=== PATIENT | female | born 1935 | race Caucasian/White ===

== ENCOUNTER 2017-04-24 14:19 | Inpatient (IN) | payer MEDICARE, BC ==
[~2017-04-24] VITALS: Ht 157.5 cm; Wt 68.4 kg
[2017-04-24 14:26] VITALS: BP 145/86; PULSE 66; RESP 18; TEMP 97.6; O2SAT 100
[2017-04-24] MEDS ORDERED: ATOR20TA15 PO (15:02)
[2017-04-24] MEDS ORDERED: BENA25CA4 PO (15:02)
[2017-04-24] MEDS ORDERED: SODIUM CHLOR 0.9% 1000 ML INJ 1,000 ML IV SCH (15:15)
--- NOTE | 2017-04-24 15:16 | PD ---
HPI Chief Complaint: Hip Injury Time Seen by Provider: 14:53 Travel History International Travel<30 days: No Contact w/Intl Traveler<30days: No Traveled to known affect area: No History of Present Illness HPI 81-year-old female complains of right hip pain. Patient states that she fell this afternoon. Patient denies loss of consciousness. Patient denies any headache or neck pain. Patient denies any chest pain or shortness of breath. Patient denies abdominal pain. Patient denies any focal weakness and numbness of the extremity. Patient denies any back pain. Patient states the pain is sharp pain localized to right hip. Patient denies any pain radiation. On a scale of 1-10 the pain is a 9. Patient has history of hyperlipidemia. PFSH Past Medical History Hx Anticoagulant Therapy: No Cancer: Yes (R BREAST ) High Cholesterol: Yes Diminished Hearing: No Immunizations Current: No Tetanus Vaccination: Unknown Influenza Vaccination: Yes Past Surgical History Tonsillectomy: Yes Other Surgery: Yes (PARTIAL R MASTECTOMY ) Social History Alcohol Use: Yes (OCC) Tobacco Use: No Substance Use: Yes Allergies-Medications (Allergen,Severity, Reaction): Coded Allergies: Penicillins (Verified Allergy, Severe, ANAPHYLACTIC SHOCK , 04/24/17) Reported Meds & Prescriptions Reported Meds & Active Scripts Active Reported Benadryl Allergy (Diphenhydramine HCl) 25 Mg Cap 2 Tab PO DAILY Atorvastatin (Atorvastatin Calcium) 20 Mg Tab 20 Mg PO DAILY Review of Systems General / Constitutional: No: Fever Eyes: No: Visual changes HENT: No: Headaches Cardiovascular: No: Chest Pain or Discomfort Respiratory: No: Shortness of Breath Gastrointestinal: No: Abdominal Pain Genitourinary: No: Dysuria Musculoskeletal: Positive: Pain Skin: No Rash Neurologic: No: Weakness Psychiatric: No: Depression Endocrine: No: Polydipsia Hematologic/Lymphatic: No: Easy Bruising Physical Exam Narrative GENERAL: Well-nourished, well-developed patient. SKIN: Focused skin assessment warm/dry. HEAD: Normocephalic. EYES: No scleral icterus. No injection or drainage. NECK: Supple, trachea midline. No JVD or lymphadenopathy. CARDIOVASCULAR: Regular rate and rhythm without murmurs, gallops, or rubs. RESPIRATORY: Breath sounds equal bilaterally. No accessory muscle use. GASTROINTESTINAL: Abdomen soft, non-tender, nondistended. MUSCULOSKELETAL: No cyanosis, or edema. BACK: Nontender without obvious deformity. No CVA tenderness. Patient has moderate to severe tenderness on palpation anterior lateral aspect of the right hip joint. Unable to move the right hip joint. Sensorimotor function distally intact. Good DP pulse. Data Data Last Documented VS Vital Signs Date Time Temp Pulse Resp B/P (MAP) Pulse Ox O2 Delivery O2 Flow Rate FiO2 04/24/17 18:50 84 18 121/75 (90) 100 04/24/17 16:30 Room Air 04/24/17 14:26 97.6 Orders Orders Electrocardiogram (04/24/17 15:09) Complete Blood Count With Diff (04/24/17 15:09) Comprehensive Metabolic Panel (04/24/17 15:09) Prothrombin Time / Inr (Pt) (04/24/17 15:09) Act Partial Throm Time (Ptt) (04/24/17 15:09) Urinalysis - C+S If Indicated (04/24/17 15:09) Chest, Single Ap (04/24/17 15:09) Iv Access Insert/Monitor (04/24/17 15:09) Ecg Monitoring (04/24/17 15:09) Oximetry (04/24/17 15:09) Urinary Catheter Insert/Apply (04/24/17 15:09) Type And Screen (04/24/17 15:09) Sodium Chlor 0.9% 1000 Ml Inj (Ns 1000 M (04/24/17 15:15) Hip, Uni(Ap&Lat) W Ap Pelvis (04/24/17 16:45) Morphine Inj (Morphine Inj) (04/24/17 17:30) Ondansetron Inj (Zofran Inj) (04/24/17 17:30) Vascular Access Team Consult/P PRN (04/24/17 18:11) Vascular Poc Ultrasound (04/24/17 ) Consult Orthopedic (04/24/17 ) (Hub Use Only)Inp Phy Cons/Ref (04/24/17 ) Diet Regular Basic (04/24/17 Dinner) Admit Order (Ed Use Only) (04/24/17 19:07) Labs Laboratory Tests Test 04/24/17 15:00 04/24/17 15:37 White Blood Count 10.4 TH/MM3 Red Blood Count 4.57 MIL/MM3 Hemoglobin 15.2 GM/DL Hematocrit 45.3 % Mean Corpuscular Volume 99.1 FL Mean Corpuscular Hemoglobin 33.3 PG Mean Corpuscular Hemoglobin Concent 33.6 % Red Cell Distribution Width 13.1 % Platelet Count 193 TH/MM3 Mean Platelet Volume 9.2 FL Neutrophils (%) (Auto) 59.6 % Lymphocytes (%) (Auto) 32.2 % Monocytes (%) (Auto) 6.2 % Eosinophils (%) (Auto) 1.7 % Basophils (%) (Auto) 0.3 % Neutrophils # (Auto) 6.2 TH/MM3 Lymphocytes # (Auto) 3.3 TH/MM3 Monocytes # (Auto) 0.6 TH/MM3 Eosinophils # (Auto) 0.2 TH/MM3 Basophils # (Auto) 0.0 TH/MM3 CBC Comment DIFF FINAL Differential Comment Prothrombin Time 10.0 SEC Prothromb Time International Ratio 1.0 RATIO Activated Partial Thromboplast Time 21.9 SEC Urine Color YELLOW Urine Turbidity CLEAR Urine pH 6.5 Urine Specific [place] 1.020 Urine Protein TRACE mg/dL Urine Glucose (UA) NEG mg/dL Urine Ketones TRACE mg/dL Urine Occult Blood NEG Urine Nitrite NEG Urine Bilirubin NEG Urine Urobilinogen LESS THAN 2.0 MG/DL Urine Leukocyte Esterase NEG Urine RBC 2 /hpf Urine WBC 3 /hpf Urine Squamous Epithelial Cells <1 /hpf Urine Bacteria RARE /hpf Urine Mucus FEW /lpf Microscopic Urinalysis Comment CULT NOT INDICATED MDM Medical Decision Making Medical Screen Exam Complete: Yes Emergency Medical Condition: Yes Interpretation(s) Last Impressions Hip and Pelvis X-Ray 04/24/17 1645 Signed Impressions: Service Date/Time: Monday, April 24, 2017 17:08 - CONCLUSION: A comminuted intertrochanteric fracture. Wagner Schmitt MD Chest X-Ray 04/24/17 1509 Signed Impressions: Service Date/Time: Monday, April 24, 2017 15:15 - CONCLUSION: No acute disease. Neil Maddox MD 1808 p.m. CBC within normal limit. UA is negative. Differential Diagnosis Differential diagnosis including fracture, dislocation. Narrative Course 81-year-old female with right hip injury. Normal saline solution 100 cc an hour. Morphine 2 mg IV. Zofran 4 MG IV. Spoke with orthopedist marketing production specialist, . Advised medical admission and surgery in a.m. Diagnosis Primary Impression: Fracture of right femur Qualified Codes: S72.141A - Displaced intertrochanteric fracture of right femur, initial encounter for closed fracture Admitting Information Admitting Physician Requests: Admit Nate Vincent MD Apr 24, 2017 15:16
--- NOTE | 2017-04-24 15:41 | RADRPT ---
EXAM DATE/TIME: 04/24/2017 15:15 [facility] COMPARISON: No previous studies available for comparison. INDICATIONS : Fell. MEDICAL HISTORY : Carcinoma, breast. SURGICAL HISTORY : partial right breast removal 12 years ago. ENCOUNTER: Initial ACUITY: 1 day PAIN SCORE: 0/10 LOCATION: Bilateral chest FINDINGS: A single view of the chest demonstrates the lungs to be symmetrically aerated without evidence of mas s, infiltrate or effusion. The cardiomediastinal contours are unremarkable. Osseous structures are intact. Right axillary dissection. CONCLUSION: No acute disease. Neil Maddox MD on April 24, 2017 at 15:37 Board Certified Radiologist. This report was verified electronically.
[2017-04-24 16:30] VITALS: BP 111/82; PULSE 84; RESP 16; O2SAT 98
[2017-04-24 16:30] LABS: AUTOMATED NEUTROPHIL # 6.2 TH/MM3 (1.8-7.7); BASOPHIL % 0.3 % (0.0-2.0); EOSINOPHIL # 0.2 TH/MM3 (0-0.4); EOSINOPHIL % 1.7 % (0.0-4.0); HEMATOCRIT 45.3 % (35.0-46.0); HEMOGLOBIN 15.2 GM/DL (11.6-15.3); LYMPH % 32.2 % (9.0-44.0); LYMPHOCYTE # 3.3 TH/MM3 (1.0-4.8); MEAN CELL VOLUME 99.1 FL (80.0-100.0); MEAN CORPUSCULAR HEMOGLOBIN 33.3 PG (27.0-34.0); MEAN CORPUSCULAR HGB CONC 33.6 % (32.0-36.0); MEAN PLATELET VOLUME 9.2 FL (7.0-11.0); MONO % 6.2 % (0.0-8.0); MONOCYTE # 0.6 TH/MM3 (0-0.9); NEUT % 59.6 % (16.0-70.0); PLATELET COUNT 193 TH/MM3 (150-450); RED BLOOD COUNT 4.57 MIL/MM3 (4.00-5.30); RED CELL DISTRIBUTION WIDTH 13.1 % (11.6-17.2); WHITE BLOOD COUNT 10.4 TH/MM3 (4.0-11.0)
[2017-04-24 16:38] LABS: BACTERIA, URINE RARE /hpf; BILIRUBIN, URINE NEG (NEG); BLOOD, URINE NEG (NEG); GLUCOSE,URINE NEG (NEG); KETONE, URINE TRACE mg/dL (NEG); MUCUS URINE FEW /lpf (OCC); NITRITE,URINE NEG (NEG); PH, URINE 6.5 (5.0-8.5); SQUAMOUS EPITHELIAL CELL URINE <1 /hpf (0-5); URINE COLOR YELLOW (YELLW/STRAW); URINE LEUKOCYTE ESTERASE NEG (NEG)
--- NOTE | 2017-04-24 17:19 | EKG ---
Date Performed: 04/24/2017 Time Performed: 15:30:37 PTAGE: 81 years EKG: Sinus rhythm NORMAL ECG NO PREVIOUS TRACING DOCTOR: Teddy Ocasio Interpretating Date/Time 04/24/2017 17:17:51
[2017-04-24] MEDS ORDERED: MORPHINE SULFATE 2 MG/ML INJ IV PUSH ONE (17:30)
[2017-04-24] MEDS ORDERED: ONDANSETRON HCL 4 MG/2 ML VIAL IV PUSH ONE (17:30)
--- NOTE | 2017-04-24 17:38 | RADRPT ---
EXAM DATE/TIME: 04/24/2017 17:08 [facility] COMPARISON: No previous studies available for comparison. INDICATIONS : Right hip pain post fall today MEDICAL HISTORY : None. SURGICAL HISTORY : None. ENCOUNTER: Initial ACUITY: 1 day PAIN SCORE: 10/10 LOCATION: Right entire hip FINDINGS: AP and crosstable lateral views of the right hip were obtained and demonstrate a mildly comminuted in tertrochanteric fracture. There is approximately 1.4 cm of distraction and mild medial angulation of the proximal femoral fracture fragment. The acetabulum is intact. There is overlying soft tissue swel ling. CONCLUSION: A comminuted intertrochanteric fracture. Wagner Schmitt MD on April 24, 2017 at 17:34 Board Certified Radiologist. This report was verified electronically.
[2017-04-24 18:50] VITALS: BP 121/75; PULSE 84; RESP 18; O2SAT 100
[2017-04-24 19:28] VITALS: BP 152/89; PULSE 89; RESP 20; O2SAT 100
[2017-04-24] MEDS ORDERED: NALOXONE HCL 0.4 MG/ML AMP IV PUSH PRN (19:30)
[2017-04-24] MEDS ORDERED: SODIUM CHLORIDE 0.9% FLUSH 10 ML FLUSH IV FLUSH PRN (19:30)
[2017-04-24] MEDS ORDERED: MAGNESIUM HYDROXIDE SUSP 30 ML CUP PO PRN (19:30)
[2017-04-24] MEDS ORDERED: MORPHINE SULFATE 2 MG/ML INJ IV PRN (19:30)
[2017-04-24] MEDS ORDERED: LACTULOSE SYRUP 20 GM/30 ML CUP PO PRN (19:30)
[2017-04-24] MEDS ORDERED: MORPHINE SULFATE 4 MG/ML INJ IV PUSH PRN (19:30)
[2017-04-24] MEDS ORDERED: SENNOSIDES 8.6 MG TAB PO PRN (19:30)
[2017-04-24] MEDS ORDERED: BISACODYL 10 MG SUPP RECTAL PRN (19:30)
[2017-04-24 20:00] LABS: ALT (GPT) 21 U/L (10-53)
[2017-04-24 20:02] LABS: ALBUMIN 3.3 GM/DL (3.4-5.0); ALKALINE PHOSPHATASE 125 U/L (45-117); AST (GOT) 32 U/L (15-37); BLOOD UREA NITROGEN 14 MG/DL (7-18); CALCIUM 8.8 MG/DL (8.5-10.1); CHLORIDE 108 MEQ/L (98-107); CREATININE 0.85 MG/DL (0.50-1.00); GLOMERULAR FILTRATION RATE 64 ML/MIN (>89); GLUCOSE,RANDOM 110 MG/DL (74-106); SODIUM (NA) 138 MEQ/L (136-145); TOTAL BILIRUBIN ADULT 0.8 MG/DL (0.2-1.0); TOTAL PROTEIN 6.9 GM/DL (6.4-8.2)
--- NOTE | 2017-04-24 20:11 | HHI.HP ---
[facility] Service [facility] Primary Care Physician Unknown Admission Diagnosis fracture right femur Diagnoses: Travel History International Travel<30 Days: No Contact w/Intl Traveler <30 Da: No Traveled to Known Affected Are: No History of Present Illness 81-year-old female with a past medical history significant for osteoarthritis and hyperlipidemia presents to the emergency department for evaluation of right- sided hip pain. The patient reports she was getting out of a car when her leg gave out and she fell directly onto her right hip on the concrete. She states her pain is currently 10/10. Hip x-ray significant for right intertrochanteric fracture. Vital signs: Temperature 97.6, pulse 66, respirations 18, BP 145/86, pulse ox 100% on room air Review of Systems Except as stated in HPI: all other systems reviewed are Neg Right lower extremity pain Past Family Social History Past Medical History Osteoarthritis Osteopenia Hyperlipidemia History of breast cancer Past Surgical History Lumpectomy with lymph node dissection Reported Medications Reported Meds & Active Scripts Active Reported Benadryl Allergy (Diphenhydramine HCl) 25 Mg Cap 2 Tab PO DAILY Atorvastatin (Atorvastatin Calcium) 20 Mg Tab 20 Mg PO DAILY Allergies: Coded Allergies: Penicillins (Verified Allergy, Severe, ANAPHYLACTIC SHOCK , 04/24/17) Family History Negative for CAD/DM Social History Occasional alcohol. Denies tobacco, illicit drugs Physical Exam Vital Signs Vital Signs Date Time Temp Pulse Resp B/P (MAP) Pulse Ox O2 Delivery O2 Flow Rate FiO2 04/24/17 19:28 89 20 152/89 (110) 100 Room Air 04/24/17 18:50 84 18 121/75 (90) 100 04/24/17 16:30 84 16 111/82 (92) 98 Room Air 04/24/17 14:30 Room Air 04/24/17 14:26 97.6 66 18 145/86 (105) 100 Physical Exam GENERAL: female lying in bed SKIN: No rashes, ecchymoses or lesions. Cool and dry. HEAD: Atraumatic. Normocephalic. No temporal or scalp tenderness. EYES: Pupils equal round and reactive. Extraocular motions intact. No scleral icterus. No injection or drainage. ENT: Nose without bleeding, purulent drainage or septal hematoma. Throat without erythema, tonsillar hypertrophy or exudate. Uvula midline. Airway patent. NECK: Trachea midline. No JVD or lymphadenopathy. Supple, nontender, no meningeal signs. CARDIOVASCULAR: Regular rate and rhythm without murmurs, gallops, or rubs. RESPIRATORY: Clear to auscultation. Breath sounds equal bilaterally. No wheezes , rales, or rhonchi. GASTROINTESTINAL: Abdomen soft, non-tender, nondistended. No hepato-splenomegaly , or palpable masses. No guarding. MUSCULOSKELETAL: Extremities without clubbing, cyanosis, or edema. Right lower extremity neurovascularly intact. NEUROLOGICAL: Awake and alert. Cranial nerves II through XII intact. Motor and sensory grossly within normal limits. Normal speech. Laboratory Laboratory Tests Test 04/24/17 15:00 04/24/17 15:37 04/24/17 19:20 White Blood Count 10.4 Red Blood Count 4.57 Hemoglobin 15.2 Hematocrit 45.3 Mean Corpuscular Volume 99.1 Mean Corpuscular Hemoglobin 33.3 Mean Corpuscular Hemoglobin Concent 33.6 Red Cell Distribution Width 13.1 Platelet Count 193 Mean Platelet Volume 9.2 Neutrophils (%) (Auto) 59.6 Lymphocytes (%) (Auto) 32.2 Monocytes (%) (Auto) 6.2 Eosinophils (%) (Auto) 1.7 Basophils (%) (Auto) 0.3 Neutrophils # (Auto) 6.2 Lymphocytes # (Auto) 3.3 Monocytes # (Auto) 0.6 Eosinophils # (Auto) 0.2 Basophils # (Auto) 0.0 CBC Comment DIFF FINAL Differential Comment Prothrombin Time 10.0 Prothromb Time International Ratio 1.0 Activated Partial Thromboplast Time 21.9 Urine Color YELLOW Urine Turbidity CLEAR Urine pH 6.5 Urine Specific [place] 1.020 Urine Protein TRACE Urine Glucose (UA) NEG Urine Ketones TRACE Urine Occult Blood NEG Urine Nitrite NEG Urine Bilirubin NEG Urine Urobilinogen LESS THAN 2.0 Urine Leukocyte Esterase NEG Urine RBC 2 Urine WBC 3 Urine Squamous Epithelial Cells <1 Urine Bacteria RARE Urine Mucus FEW Microscopic Urinalysis Comment CULT NOT INDICATED Alanine Aminotransferase (ALT/SGPT) 21 Result Diagram: 04/24/17 1500 Caprini VTE Risk Assessment Caprini VTE Risk Assessment: Mod/High Risk (score >= 2) Caprini Risk Assessment Model Point Value = 1 Point Value = 2 Point Value = 3 Point Value = 5 Age 41-60 Minor surgery BMI > 25 kg/m2 Swollen legs Varicose veins or History of unexplained or recurrent spontaneous Oral contraceptives or hormone replacement Sepsis (< 1 month) Serious lung disease, including pneumonia (< 1 month) Abnormal pulmonary function Acute myocardial infarction Congestive heart failure (< 1 month) History of inflammatory bowel disease Medical patient at bed rest Age 61-74 Arthroscopic surgery Major open surgery (> 45 min) Laparoscopic surgery (> 45 min) Malignancy Confined to bed (> 72 hours) Immobilizing plaster cast Central venous access Age >= 75 History of VTE Family history of VTE Factor V Leiden Prothrombin [id number] Lupus anticoagulant Anticardiolipin antibodies Elevated serum homocysteine Heparin-induced thrombocytopenia Other congenital or acquired thrombophilia Stroke (< 1 month) Elective arthroplasty Hip, pelvis, or leg fracture Acute spinal cord injury (< 1 month) Prophylaxis Regimen Total Risk Factor Score Risk Level Prophylaxis Regimen 0-1 Low Early ambulation 2 Moderate Order ONE of the following: *Sequential Compression Device (SCD) *Heparin 5000 units SQ BID 3-4 Higher Order ONE of the following medications: *Heparin 5000 units SQ TID *Enoxaparin/Lovenox 40 mg SQ daily (WT < 150 kg, CrCl > 30 mL/min) *Enoxaparin/Lovenox 30 mg SQ daily (WT < 150 kg, CrCl > 10-29 mL/min) *Enoxaparin/Lovenox 30 mg SQ BID (WT < 150 kg, CrCl > 30 mL/min) AND/OR *Sequential Compression Device (SCD) 5 or more Highest Order ONE of the following medications: *Heparin 5000 units SQ TID (Preferred with Epidurals) *Enoxaparin/Lovenox 40 mg SQ daily (WT < 150 kg, CrCl > 30 mL/min) *Enoxaparin/Lovenox 30 mg SQ daily (WT < 150 kg, CrCl > 10-29 mL/min) *Enoxaparin/Lovenox 30 mg SQ BID (WT < 150 kg, CrCl > 30 mL/min) AND *Sequential Compression Device (SCD) Assessment and Plan Assessment and Plan Assessment/plan: 1. Right hip fracture Hip x-ray significant for comminuted intertrochanteric fracture Ortho surgery consulted, appreciate recommendations Morphine for pain Nothing by mouth IV fluids 2. Hyperlipidemia Continue home statin FEN NPO NS at 100 cc/hr Electrolytes: monitor and replete prn Holding pharmacologic anticoagulation in anticipation of operative intervention for Physician Certification 2 Midnight Certification Type: Admission for Inpatient Services Order for Inpatient Services The services are ordered in accordance with Medicare regulations or non- Medicare payer requirements, as applicable. In the case of services not specified as inpatient-only, they are appropriately provided as inpatient services in accordance with the 2-midnight benchmark. Estimated LOS (days): 2 2 days is the estimated time the patient will need to remain in the hospital, assuming treatment plan goals are met and no additional complications. Post-Hospital Plan: Not yet determined Melissa Copeland MD Apr 24, 2017 20:11
[2017-04-24 20:59] VITALS: BP 125/74; PULSE 62; RESP 18; TEMP 97.5; O2SAT 97
[2017-04-24] MEDS ORDERED: SODIUM CHLORID 0.9% 500 ML IV PRN (21:45)
[2017-04-24] MEDS ORDERED: POVIDONE IODINE 5% (ANTISEPSIS KIT) 4 APPLICATIONS EACH NARE PRN (21:45)
[2017-04-24] MEDS ORDERED: CHLORHEXIDINE GLUCONATE 2 % 1 PACK (2 CLOTHS) TOPICAL PRN (21:45)
[2017-04-24] MEDS ORDERED: LACTATED RINGER'S 1000 ML IV PRN (21:45)
[2017-04-24] MEDS ORDERED: HYDROmorphone HCL PF 1 MG/ML VIAL IV PUSH ONE (22:15)
[2017-04-24] MEDS ORDERED: HYDROmorphone HCL PF 2 MG/ML VIAL IV PUSH ONE (22:30)
[2017-04-24] MEDS: SODIUM CHLORIDE 0.9% FLUSH 10 ML FLUSH IV FLUSH SCH (22:52)
[2017-04-24] MEDS: ONDANSETRON HCL 4 MG/2 ML VIAL IVP PRN (23:04)
[2017-04-24 23:59] VITALS: BP 155/66; PULSE 100; RESP 18; TEMP 96.9; O2SAT 94
[2017-04-25 04:20] VITALS: BP 120/62; PULSE 93; RESP 18; TEMP 96.7; O2SAT 94
[2017-04-25] MEDS: SODIUM CHLORIDE 0.9% FLUSH 10 ML FLUSH IV FLUSH SCH ×3 (07:12→20:21)
[2017-04-25] MEDS: ATORVASTATIN 20 MG TAB PO SCH (07:12)
[2017-04-25 07:16] LABS: BICARBONATE 20.1 MEQ/L (21.0-32.0); CALCIUM 8.2 MG/DL (8.5-10.1); CREATININE 0.76 MG/DL (0.50-1.00)
[2017-04-25 08:00] VITALS: BP 132/60; PULSE 102; RESP 17; TEMP 97.2; O2SAT 96
--- NOTE | 2017-04-25 08:30 | PD.CONS ---
HPI Service Orthopedic Surgeons Consult Requested By Primary Care Physician Unknown Admission Diagnosis fracture right femur Diagnoses: Chief Complaint: right intertrochanteric femur fracture History of Present Illness Patient is an 81-year-old female who tripped and fell off a curb onto her right hip. Patient had immediate onset of right hip pain. Patient denies any head trauma or loss of consciousness. She denies any other extremity injury. Review of Systems Constitutional: DENIES: Fever Endocrine: DENIES: Polyuria Eyes: DENIES: Blurred vision Ears, nose, mouth, throat: DENIES: Throat pain Respiratory: DENIES: Cough Cardiovascular: DENIES: Chest pain Gastrointestinal: DENIES: Abdominal pain Genitourinary: DENIES: Urinary incontinence Musculoskeletal: COMPLAINS OF: Joint pain, Joint Swelling Integumentary: DENIES: Rash Hematologic/lymphatic: DENIES: Bruising Immunologic/allergic: DENIES: Eczema Neurologic: DENIES: Abnormal gait Psychiatric: DENIES: Anxiety Past Family Social History Past Medical History Osteoarthritis Osteopenia Hyperlipidemia History of breast cancer Past Surgical History Lumpectomy with lymph node dissection Allergies: Coded Allergies: Penicillins (Verified Allergy, Severe, ANAPHYLACTIC SHOCK , 04/24/17) Active Ordered Medications Current Medications Medications (Trade) Dose Ordered Sig/Margarette Route Start Time Stop Time Status Last Admin (NS Flush) 2 ml UNSCH PRN IV FLUSH 04/24/17 19:30 (NS Flush) 2 ml BID IV FLUSH 04/24/17 21:00 04/24/17 22:52 (Tylenol) 650 mg Q4H PRN PO 04/24/17 19:30 (Zofran Inj) 4 mg Q6H PRN IVP 04/24/17 19:30 04/24/17 23:04 (Narcan Inj) 0.4 mg UNSCH PRN IV PUSH 04/24/17 19:30 (Milk Of Magnesia Liq) 30 ml Q12H PRN PO 04/24/17 19:30 (Senokot) 17.2 mg Q12H PRN PO 04/24/17 19:30 (Dulcolax Supp) 10 mg DAILY PRN RECTAL 04/24/17 19:30 (Lactulose Liq) 30 ml DAILY PRN PO 04/24/17 19:30 (Morphine Inj) 2 mg Q3H PRN IV 04/24/17 19:30 (Morphine Inj) 4 mg Q3H PRN IV PUSH 04/24/17 19:30 04/24/17 20:18 (Lipitor) 20 mg DAILY PO 04/25/17 09:00 Lactated Ringer's 1,000 ml @ 30 mls/hr Q24H PRN IV 04/24/17 21:45 04/27/17 21:44 04/25/17 04:56 Sodium Chloride 500 ml @ 30 mls/hr [id number] PRN IV 04/24/17 21:45 04/27/17 21:44 (Betadine 5% Antisepsis Kit) 1 applic PRODUCTION LINE ASSEMBLER PRN EACH NARE 04/24/17 21:45 04/27/17 21:44 (Chlorhexidine 2% Cloth) 3 pack PRODUCTION LINE ASSEMBLER PRN TOPICAL 04/24/17 21:45 04/27/17 21:44 Reported Meds & Active Scripts Active Reported Benadryl Allergy (Diphenhydramine HCl) 25 Mg Cap 2 Tab PO DAILY Atorvastatin (Atorvastatin Calcium) 20 Mg Tab 20 Mg PO DAILY Family History Negative for CAD/DM Social History Occasional alcohol. Denies tobacco, illicit drugs Physical Exam Vital Signs Vital Signs Date Time Temp Pulse Resp B/P (MAP) Pulse Ox O2 Delivery O2 Flow Rate FiO2 04/25/17 08:00 97.2 102 17 132/60 (84) 96 04/25/17 04:20 96.7 93 18 120/62 (81) 94 04/24/17 23:59 96.9 100 18 155/66 (95) 94 04/24/17 20:59 97.5 62 18 125/74 (91) 97 04/24/17 20:30 18 04/24/17 20:26 04/24/17 19:28 89 20 152/89 (110) 100 Room Air 04/24/17 18:50 84 18 121/75 (90) 100 04/24/17 16:30 84 16 111/82 (92) 98 Room Air 04/24/17 14:30 Room Air 04/24/17 14:26 97.6 66 18 145/86 (105) 100 Physical Exam Awake, alert, no acute distress Pupils equal Moist mucous membranes No JVD Nonlabored respirations Normocephalic Regular rate Soft nontender abdomen Right lower extremity: positive logroll with mild edema about the hip. Unable to assess range of motion due to pain at the hip. Patient is neurovascular intact distally positive EHL, FHL, tibia, gastrocs. Sensation intact. Dorsalis pedis pulse palpable. Bilateral upper extremities and left lower extremity: no tenderness palpation or visible deformities. Full active range of motion and strength throughout. Sensation intact. Neurovascularly intact distally. Palpable dorsalis pedis and radial pulses. No rash Normal affect Laboratory Laboratory Tests Test 04/24/17 15:00 04/24/17 15:37 04/24/17 19:20 04/25/17 05:50 White Blood Count 10.4 Red Blood Count 4.57 Hemoglobin 15.2 Hematocrit 45.3 Mean Corpuscular Volume 99.1 Mean Corpuscular Hemoglobin 33.3 Mean Corpuscular Hemoglobin Concent 33.6 Red Cell Distribution Width 13.1 Platelet Count 193 Mean Platelet Volume 9.2 Neutrophils (%) (Auto) 59.6 Lymphocytes (%) (Auto) 32.2 Monocytes (%) (Auto) 6.2 Eosinophils (%) (Auto) 1.7 Basophils (%) (Auto) 0.3 Neutrophils # (Auto) 6.2 Lymphocytes # (Auto) 3.3 Monocytes # (Auto) 0.6 Eosinophils # (Auto) 0.2 Basophils # (Auto) 0.0 CBC Comment DIFF FINAL Differential Comment Prothrombin Time 10.0 Prothromb Time International Ratio 1.0 Activated Partial Thromboplast Time 21.9 Urine Color YELLOW Urine Turbidity CLEAR Urine pH 6.5 Urine Specific [place] 1.020 Urine Protein TRACE Urine Glucose (UA) NEG Urine Ketones TRACE Urine Occult Blood NEG Urine Nitrite NEG Urine Bilirubin NEG Urine Urobilinogen LESS THAN 2.0 Urine Leukocyte Esterase NEG Urine RBC 2 Urine WBC 3 Urine Squamous Epithelial Cells <1 Urine Bacteria RARE Urine Mucus FEW Microscopic Urinalysis Comment CULT NOT INDICATED Blood Urea Nitrogen 14 15 Creatinine 0.85 0.76 Random Glucose 110 139 Total Protein 6.9 Albumin 3.3 Calcium Level 8.8 8.2 Alkaline Phosphatase 125 Aspartate Amino Transf (AST/SGOT) 32 Alanine Aminotransferase (ALT/SGPT) 21 Total Bilirubin 0.8 Sodium Level 138 137 Potassium Level 4.5 4.1 Chloride Level 108 108 Carbon Dioxide Level 23.0 20.1 Anion Gap 7 9 Estimat Glomerular Filtration Rate 64 73 Result Diagram: 04/24/17 1500 04/25/17 0550 Imaging Last 24 hours Impressions Hip and Pelvis X-Ray 04/24/17 1645 Signed Impressions: Service Date/Time: Monday, April 24, 2017 17:08 - CONCLUSION: A comminuted intertrochanteric fracture. Wagner Schmitt MD Chest X-Ray 04/24/17 1509 Signed Impressions: Service Date/Time: Monday, April 24, 2017 15:15 - CONCLUSION: No acute disease. Neil Maddox MD Assessment & Plan Assessment and Plan Patient is an 81-year-old female with a right peritrochanteric femur fracture Options management were discussed with the patient. Given she has a hip fracture, I recommended operative intervention in the form of intramedullary nail of her right femur. Risks, benefits, alternatives were discussed with the patient. Risks including but not limited to: Infection, nonunion or malunion, hardware failure or malposition, neurovascular injury, hip pain or arthritis, possible need further surgery, and other unforeseen complications. At this time the patient is consented to procedure. Patient is nothing by mouth at this time for surgery later this afternoon. Paz Crane MD Apr 25, 2017 08:30
[2017-04-25] MEDS ORDERED: GENTAMICIN SULFATE 80 MG/2 ML VIAL ONE (11:39)
[2017-04-25] MEDS ORDERED: BUPIVACAINE/EPINEPHRINE 0.25% PF 10 ML VIAL ONE (11:42)
[2017-04-25] MEDS ORDERED: BUPIVACAINE/EPINEPHRINE 0.25% 50 ML VIAL ONE (11:43)
[2017-04-25 11:56] VITALS: BP 103/49; PULSE 99; RESP 17; TEMP 98; O2SAT 93
[2017-04-25] MEDS ORDERED: PROPOFOL 200 MG/20 ML AMP IV ONE (12:00)
[2017-04-25] MEDS ORDERED: ROCURONIUM INJ 50 MG/5 ML SYRINGE IV PUSH ONE (12:00)
[2017-04-25] MEDS ORDERED: ceFAZolin INJ 1,000 MG VIAL IV ONE ×2 (12:00→13:34)
[2017-04-25] MEDS ORDERED: LIDOCAINE HCL 1% PF 5 ML SYRINGE OTHER ONE (12:00)
[2017-04-25] MEDS ORDERED: ONDANSETRON HCL 4 MG/2 ML VIAL IV ONE (12:00)
[2017-04-25] MEDS ORDERED: PHENYLEPH/NS 1000 MCG/10 ML SYR IV ONE (12:00)
[2017-04-25] MEDS ORDERED: DEXAMETHASONE SOD PHOS 4 MG/ML VIAL IV ONE (12:00)
[2017-04-25] MEDS ORDERED: ePHEDrine/NS 25 MG/5 ML SYRINGE IV ONE (12:00)
--- NOTE | 2017-04-25 12:01 | HHI.PR ---
Subjective Remarks Pain is controlled. Patient will be having surgery later today. No acute concerns to prohibit surgery. Patient is medically clear for surgery. Objective Vital Signs Date Time Temp Pulse Resp B/P (MAP) Pulse Ox O2 Delivery O2 Flow Rate FiO2 04/25/17 11:56 98.0 99 17 103/49 (67) 93 04/25/17 08:00 97.2 102 17 132/60 (84) 96 04/25/17 04:20 96.7 93 18 120/62 (81) 94 04/24/17 23:59 96.9 100 18 155/66 (95) 94 04/24/17 20:59 97.5 62 18 125/74 (91) 97 04/24/17 20:30 18 04/24/17 20:26 04/24/17 19:28 89 20 152/89 (110) 100 Room Air 04/24/17 18:50 84 18 121/75 (90) 100 04/24/17 16:30 84 16 111/82 (92) 98 Room Air 04/24/17 14:30 Room Air 04/24/17 14:26 97.6 66 18 145/86 (105) 100 I/O 04/24/17 04/24/17 04/24/17 04/25/17 04/25/17 04/25/17 07:00 15:00 23:00 07:00 15:00 23:00 Intake Total 1000 ml 720 ml Output Total 500 ml Balance 1000 ml 220 ml Intake Oral 720 ml IV Total 1000 ml Output Urine Total 500 ml # Bowel Movements 0 Result Diagram: 04/24/17 1500 04/25/17 0550 Objective Remarks GENERAL: NAD, A&Ox3 HEAD: Normocephalic. NECK: Supple, trachea midline. No lymphadenopathy. EYES: No scleral icterus. No injection or drainage. CARDIOVASCULAR: Regular rate and rhythm without murmurs, gallops, or rubs. RESPIRATORY: Breath sounds equal bilaterally. No accessory muscle use. GASTROINTESTINAL: Abdomen soft, non-tender, nondistended. MUSCULOSKELETAL: No cyanosis, or edema. Pain with any attempted range of motion of right lower extremity. SKIN: Warm and dry. NEURO: No focal neurological deficitis. Medications and IVs Administered Medications Medications (Trade) Dose Ordered Sig/Margarette Route PRN Reason Start Time Stop Time Status Last Admin Dose Admin Sodium Chloride (NS Flush) 2 ml BID IV FLUSH 04/24/17 21:00 04/24/17 22:52 Ondansetron HCl (Zofran Inj) 4 mg Q6H PRN IVP NAUSEA OR VOMITING 04/24/17 19:30 04/24/17 23:04 Morphine Sulfate (Morphine Inj) 2 mg Q3H PRN IV pain 1-5 04/24/17 19:30 04/25/17 09:16 Morphine Sulfate (Morphine Inj) 4 mg Q3H PRN IV PUSH pain 6-10 04/24/17 19:30 04/24/17 20:18 Lactated Ringer's 1,000 ml @ 30 mls/hr Q24H PRN IV SEE LABEL COMMENTS 04/24/17 21:45 04/27/17 21:44 04/25/17 04:56 A/P Problem List: (1) Fracture of right femur ICD Code: S72.91XA - Unspecified fracture of right femur, initial encounter for closed fracture Status: Acute Assessment and Plan 81-year-old female admitted secondary to fracture of the right femur. Plan for surgical intervention later today. Patient medically clear for surgery. Right femur fracture Patient medically clear for surgery Continue as needed pain treatments Orthopedic surgeon following Anticipate physical therapy postop May need [facility] facility at time of discharge Hyperlipidemia Continue home statin DVT prophylaxis Anticoagulation on hold preop Problem Qualifiers (1) Fracture of right femur: Qualified Codes: S72.141A - Displaced intertrochanteric fracture of right femur , initial encounter for closed fracture Albert Cochran MD Apr 25, 2017 12:01
[2017-04-25 12:11] LABS: AUTOMATED NEUTROPHIL # 7.1 TH/MM3 (1.8-7.7); BASOPHIL % 0.5 % (0.0-2.0); EOSINOPHIL % 0.4 % (0.0-4.0); HEMATOCRIT 37.6 % (35.0-46.0); HEMOGLOBIN 12.8 GM/DL (11.6-15.3); LYMPH % 20.8 % (9.0-44.0); LYMPHOCYTE # 2.1 TH/MM3 (1.0-4.8); MEAN CELL VOLUME 98.9 FL (80.0-100.0); MEAN CORPUSCULAR HEMOGLOBIN 33.7 PG (27.0-34.0); MEAN CORPUSCULAR HGB CONC 34.1 % (32.0-36.0); MEAN PLATELET VOLUME 8.7 FL (7.0-11.0); MONO % 7.7 % (0.0-8.0); MONOCYTE # 0.8 TH/MM3 (0-0.9); NEUT % 70.6 % (16.0-70.0); PLATELET COUNT 154 TH/MM3 (150-450); RED BLOOD COUNT 3.81 MIL/MM3 (4.00-5.30); RED CELL DISTRIBUTION WIDTH 13.4 % (11.6-17.2); WHITE BLOOD COUNT 10.1 TH/MM3 (4.0-11.0)
[2017-04-25] MEDS ORDERED: FAMOTIDINE 20 MG/2 ML VIAL ONE (12:13)
[2017-04-25] MEDS ORDERED: MIDAZOLAM HCL 2 MG/2 ML VIAL ONE (12:13)
[2017-04-25] MEDS ORDERED: VANCOMYCIN HCL 1000 MG VIAL ONE (13:11)
--- NOTE | 2017-04-25 14:58 | PD.OP ---
cc: Paz Crane MD Operative Report Preoperative Diagnosis: (1) Fracture of right femur Postoperative Diagnosis: Right unstable peritrochanteric femur fracture Procedure: Intramedullary nail right femur Anesthesia: Gen. Surgeon: Paz Crane Wine Maker(s): None Operation and Findings: EBL: 150 cc Complications: None Specimens: None Indications for procedure: Patient is an 81-year-old female who presented after a trip and fall with acute onset right hip pain and found to have a right peritrochanteric femur fracture. Options of management were discussed with the patient. Surgical intervention was recommended in the form of intramedullary nail of her right femur. After discussion of risks, benefits and alternatives, patient consented the procedure. Description of procedure: Patient was brought back to the operating room and general anesthesia then ensued. Patient was then positioned onto an operating room fracture table with all bony prominences well-padded. Patient was prepped and draped in standard sterile fashion. Preoperative antibiotics were given within 1 hour of incision. A timeout was performed to identify the correct patient, side, site and procedure to be performed. The fracture was then reduced with the use of the fracture table through traction and rotation. An approximate 1-1/2-2 inch incision was made just proximal to and posterior to the greater trochanter. A guidewire was then placed into the tip of the greater trochanter and advanced to the lesser trochanteric region on both AP and lateral films. An opening reamer was then used to provide injury into the femoral canal and advanced to the lesser trochanter region. Given the concern that this was a reverse obliquity intertrochanteric fracture, an intermediate length nail was going to be used and therefore a ball-tipped guidewire was placed into the femoral canal. A 12 mm reamer was then used and passed beyond the level of the femoral isthmus. This was then removed and the Synthes TFN nail was then placed into the femur and advanced to appropriate position in both the AP and lateral films. The sleeves for the locking blade were then inserted through the jig and a lateral based incision was made to allow the sleeves to be placed down to the lateral aspect of the proximal femur. When this was in appropriate position on both AP and lateral, a guidewire for the blade was then inserted from lateral to medial direction into the femoral neck and into the center center position in the femoral head on AP and lateral radiographs. This was subsequently measured, drilled and then advanced and placed. This was found to be in appropriate position in a center center position in the femoral head on both AP and lateral radiographs. The locking screw was then tightened down onto the blade and then loosened one half turn to allow for controlled collapse. The guidewire was then removed. Traction was removed from the femur and the fracture was found to be in good position on both AP and lateral radiographs. The drill sleeves were then placed for the distal locking screw and lateral incision again made in the sleeves advanced down to the lateral cortex. This was then drilled, measured and a locking screw placed. The insertion handle and jig was then removed. Final radiographs demonstrated fracture was well aligned on both AP and lateral radiographs and hardware and acceptable position. The incisions were thoroughly irrigated and closed with interrupted Vicryl sutures and kelly on the skin. Sterile dressings were then placed. Patient was awoken from general anesthesia without complication. Disposition: Patient will be partial weightbearing 50% to the right lower extremity. Plan to mobilize her starting on postop day 1. Lovenox for DVT prophylaxis while in house and plan for xarelto upon discharge. Paz Crane MD Apr 25, 2017 14:58
[2017-04-25] MEDS ORDERED: SODIUM CHLORIDE 0.9% FLUSH 10 ML FLUSH IV FLUSH PRN (15:00)
[2017-04-25] MEDS ORDERED: Post-op Orders (for Pharmacy) XX ONE (15:00)
[2017-04-25] MEDS ORDERED: *morphine SULFATE 10 MG/ML PERIprocedure ONLY ONE (15:07)
[2017-04-25] MEDS ORDERED: *ONDANSETRON 4 MG VIAL PERIprocedural Use ONLY ONE (15:07)
--- NOTE | 2017-04-25 15:21 | RADRPT ---
EXAM DATE/TIME: 04/25/2017 14:28 [facility] COMPARISON: No previous studies available for comparison. INDICATIONS : Im troch nail right hip. MEDICAL HISTORY : Intertrochanteric fracture right hip. SURGICAL HISTORY : None. ENCOUNTER: Subsequent ACUITY: 2 days PAIN SCORE: Non-responsive. LOCATION: Right Hip. CONCLUSION: Fluoroscopic images during placement of nail/clari in the right femur. Neil Maddox MD on April 25, 2017 at 15:18 Board Certified Radiologist. This report was verified electronically.
[2017-04-25] MEDS ORDERED: DO NOT ADM ANY ANTICOAGULANT DRUGS PRN (15:45)
[2017-04-25 16:00] VITALS: BP 122/60; PULSE 99; RESP 17; TEMP 96.5; O2SAT 95
[2017-04-25] MEDS: ONDANSETRON HCL 4 MG/2 ML VIAL IVP PRN (16:27)
[2017-04-25 21:00] VITALS: BP 93/42; PULSE 76; RESP 18; TEMP 96.7; O2SAT 97
[2017-04-25 23:04] VITALS: BP 94/43; PULSE 104; RESP 18; TEMP 97.3; O2SAT 92
[2017-04-26] MEDS: ENOXAPARIN SODIUM 40 MG/0.4 ML SYRINGE SQ SCH (03:43)
[2017-04-26 05:50] VITALS: BP 95/61; PULSE 101; RESP 18; TEMP 98.1; O2SAT 94
[2017-04-26 05:54] LABS: AUTOMATED NEUTROPHIL # 11.3 TH/MM3 (1.8-7.7); BASOPHIL % 0.1 % (0.0-2.0); HEMATOCRIT 31.6 % (35.0-46.0); HEMOGLOBIN 10.7 GM/DL (11.6-15.3); LYMPH % 8.4 % (9.0-44.0); LYMPHOCYTE # 1.1 TH/MM3 (1.0-4.8); MEAN CELL VOLUME 99.4 FL (80.0-100.0); MEAN CORPUSCULAR HEMOGLOBIN 33.7 PG (27.0-34.0); MEAN CORPUSCULAR HGB CONC 33.9 % (32.0-36.0); MEAN PLATELET VOLUME 8.8 FL (7.0-11.0); MONO % 5.7 % (0.0-8.0); MONOCYTE # 0.8 TH/MM3 (0-0.9); NEUT % 85.8 % (16.0-70.0); PLATELET COUNT 141 TH/MM3 (150-450); RED BLOOD COUNT 3.18 MIL/MM3 (4.00-5.30); RED CELL DISTRIBUTION WIDTH 13.5 % (11.6-17.2); WHITE BLOOD COUNT 13.2 TH/MM3 (4.0-11.0)
[2017-04-26 06:16] LABS: ALBUMIN 2.8 GM/DL (3.4-5.0); ALT (GPT) 18 U/L (10-53); AST (GOT) 33 U/L (15-37); BICARBONATE 22.3 MEQ/L (21.0-32.0); BLOOD UREA NITROGEN 9 MG/DL (7-18); CALCIUM 7.9 MG/DL (8.5-10.1); CHLORIDE 107 MEQ/L (98-107); CREATININE 0.77 MG/DL (0.50-1.00); GLOMERULAR FILTRATION RATE 72 ML/MIN (>89); GLUCOSE,RANDOM 140 MG/DL (74-106); SODIUM (NA) 140 MEQ/L (136-145)
[2017-04-26 06:18] LABS: ALKALINE PHOSPHATASE 108 U/L (45-117); TOTAL BILIRUBIN ADULT 0.4 MG/DL (0.2-1.0); TOTAL PROTEIN 6.6 GM/DL (6.4-8.2)
[2017-04-26 08:00] VITALS: BP 120/55; PULSE 107; RESP 18; TEMP 97.1; O2SAT 92
[2017-04-26] MEDS: SODIUM CHLORIDE 0.9% FLUSH 10 ML FLUSH IV FLUSH SCH ×3 (08:28→20:59)
[2017-04-26] MEDS: ATORVASTATIN 20 MG TAB PO SCH (08:28)
[2017-04-26 12:00] VITALS: BP 128/70; PULSE 104; RESP 18; TEMP 97.4; O2SAT 93
--- NOTE | 2017-04-26 12:07 | PD.ORT.PN ---
Subjective Subjective Remarks Patient states she is doing very well although very confused. Denies pain. Denies shortness of breath. Objective Vitals Vital Signs Date Time Temp Pulse Resp B/P (MAP) Pulse Ox O2 Delivery O2 Flow Rate FiO2 04/26/17 05:50 98.1 101 18 95/61 (72) 94 04/25/17 23:04 97.3 104 18 94/43 (60) 92 04/25/17 21:00 96.7 76 18 93/42 (59) 97 04/25/17 16:00 96.5 99 17 122/60 (80) 95 04/25/17 15:42 98.4 98 19 117/55 (75) 99 Nasal Cannula 2 04/25/17 15:30 99 20 120/56 (77) 99 Nasal Cannula 2 04/25/17 15:15 100 17 113/56 (75) 97 Nasal Cannula 2 04/25/17 15:00 101 15 117/54 (75) 98 Nasal Cannula 2 04/25/17 14:53 98.6 110 21 135/67 (89) 92 Nasal Cannula 2 I/O 04/25/17 04/25/17 04/25/17 04/26/17 04/26/17 04/26/17 07:00 15:00 23:00 07:00 15:00 23:00 Intake Total 720 ml 1300 ml 360 ml 600 ml Output Total 500 ml 500 ml 600 ml 1000 ml Balance 220 ml 800 ml -240 ml -400 ml Intake Oral 720 ml 0 ml 360 ml 600 ml IV Total 1300 ml Output Urine Total 500 ml 500 ml 600 ml 1000 ml # Bowel Movements 0 0 0 0 Result Diagram: 04/26/1743904/26/17439 Objective Remarks Awake, alert, no acute distress. Confused at baseline. Right lower extremity: Dressings in place although patient continues to try to remove these. No significant drainage. Negative Homans. Neurovascularly intact distally. Brisk cap refill. Assessment & Plan Assessment and Plan Patient is an 81-year-old female, POD#1 s/p right intramedullary nail for peritrochanteric femur fracture 1. Partial weightbearing 50% right lower extremity. 2. PT for mobilization 3. Lovenox for DVT prophylaxis. Plan for switch to xarelto upon discharge. 4. Dressing changes as needed. 5. Orthopedically stable for discharge once confusion improves. Paz Crane MD Apr 26, 2017 12:07
[2017-04-26] MEDS ORDERED: NORC5TAB PO (12:09)
[2017-04-26] MEDS ORDERED: XARE10TA PO (12:13)
--- NOTE | 2017-04-26 14:25 | HHI.PR ---
Subjective Remarks Pain is controlled postop. No nausea or vomiting. Patient does have confusion which is likely an anesthetic effect combined with an underlying dementia. Objective Vital Signs Date Time Temp Pulse Resp B/P (MAP) Pulse Ox O2 Delivery O2 Flow Rate FiO2 04/26/17 08:00 97.1 107 18 120/55 (76) 92 04/26/17 05:50 98.1 101 18 95/61 (72) 94 04/25/17 23:04 97.3 104 18 94/43 (60) 92 04/25/17 21:00 96.7 76 18 93/42 (59) 97 04/25/17 16:00 96.5 99 17 122/60 (80) 95 04/25/17 15:42 98.4 98 19 117/55 (75) 99 Nasal Cannula 2 04/25/17 15:30 99 20 120/56 (77) 99 Nasal Cannula 2 04/25/17 15:15 100 17 113/56 (75) 97 Nasal Cannula 2 04/25/17 15:00 101 15 117/54 (75) 98 Nasal Cannula 2 04/25/17 14:53 98.6 110 21 135/67 (89) 92 Nasal Cannula 2 I/O 04/25/17 04/25/17 04/25/17 04/26/17 04/26/17 04/26/17 07:00 15:00 23:00 07:00 15:00 23:00 Intake Total 720 ml 1300 ml 360 ml 600 ml Output Total 500 ml 500 ml 600 ml 1000 ml Balance 220 ml 800 ml -240 ml -400 ml Intake Oral 720 ml 0 ml 360 ml 600 ml IV Total 1300 ml Output Urine Total 500 ml 500 ml 600 ml 1000 ml # Bowel Movements 0 0 0 0 Result Diagram: 04/26/170 04/26/170 Objective Remarks GENERAL: NAD, A&Ox3 HEAD: Normocephalic. NECK: Supple, trachea midline. No lymphadenopathy. EYES: No scleral icterus. No injection or drainage. CARDIOVASCULAR: Regular rate and rhythm without murmurs, gallops, or rubs. RESPIRATORY: Breath sounds equal bilaterally. No accessory muscle use. GASTROINTESTINAL: Abdomen soft, non-tender, nondistended. MUSCULOSKELETAL: No cyanosis, or edema. Pain with any attempted range of motion of right lower extremity. SKIN: Warm and dry. NEURO: No focal neurological deficitis. A/P Problem List: (1) Fracture of right femur ICD Code: S72.91XA - Unspecified fracture of right femur, initial encounter for closed fracture Status: Acute Assessment and Plan 81-year-old female admitted secondary to fracture of the right femur. Confusion is present postop. Pain controlled and no nausea or vomiting. Hemoglobin dropped from 12.8 to 10.7, no signs of active bleeding. Right femur fracture Patient medically clear for surgery Continue as needed pain treatments Orthopedic surgeon following Anticipate physical therapy postop May need correction facility at time of discharge Hyperlipidemia Continue home statin DVT prophylaxis Anticoagulation on hold preop Problem Qualifiers (1) Fracture of right femur: Qualified Codes: S72.141A - Displaced intertrochanteric fracture of right femur , initial encounter for closed fracture Albert Cochran MD Apr 26, 2017 14:25
[2017-04-26 16:00] VITALS: BP 142/80; PULSE 101; RESP 17; TEMP 98; O2SAT 94
[2017-04-26] MEDS: traMADol HCL 50 MG TAB PO PRN (16:51)
[2017-04-26 20:00] VITALS: BP 99/51; PULSE 101; RESP 18; TEMP 97.8; O2SAT 94
[2017-04-27] VITALS: BP 112/60; PULSE 97; RESP 17; TEMP 96.8; O2SAT 93
[2017-04-27] MEDS: ENOXAPARIN SODIUM 40 MG/0.4 ML SYRINGE SQ SCH (03:27)
[2017-04-27 04:00] VITALS: BP 121/63; PULSE 100; RESP 16; TEMP 97.4; O2SAT 94
[2017-04-27] MEDS: traMADol HCL 50 MG TAB PO PRN (05:41)
--- NOTE | 2017-04-27 07:39 | PD.ORT.PN ---
Subjective Subjective Remarks mild confusion Objective Vitals Vital Signs Date Time Temp Pulse Resp B/P (MAP) Pulse Ox O2 Delivery O2 Flow Rate FiO2 04/27/17 04:00 97.4 100 16 121/63 (82) 94 04/27/17 00:00 96.8 97 17 112/60 (77) 93 04/26/17 20:00 97.8 101 18 99/51 (67) 94 04/26/17 16:00 98.0 101 17 142/80 (100) 94 04/26/17 12:00 97.4 104 18 128/70 (89) 93 04/26/17 08:00 97.1 107 18 120/55 (76) 92 I/O 04/26/17 04/26/17 04/26/17 04/27/17 04/27/17 04/27/17 07:00 15:00 23:00 07:00 15:00 23:00 Intake Total 600 ml 650 ml 480 ml 360 ml Output Total 1000 ml 4 ml Balance -400 ml 646 ml 480 ml 360 ml Intake Oral 600 ml 650 ml 480 ml 360 ml Output Urine Total 1000 ml 4 ml # Voids 2 1 # Bowel Movements 0 Result Diagram: 04/26/17 0440 04/26/17 0440 Objective Remarks Awake, alert, no acute distress. Right lower extremity: Dressings in place although patient continues to try to remove these. No significant drainage. Negative Homans. Neurovascularly intact distally. Brisk cap refill. Assessment & Plan Assessment and Plan Patient is an 81-year-old female, POD#2 s/p right intramedullary nail for peritrochanteric femur fracture 1. Partial weightbearing 50% right lower extremity. 2. PT for mobilization 3. Lovenox for DVT prophylaxis. Plan for switch to xarelto upon discharge. 4. Dressing changes as needed. 5. Orthopedically stable for discharge once confusion improves. (similar to yesterday) Bronson Boyer MD Apr 27, 2017 07:39
[2017-04-27 07:59] VITALS: BP 105/50; PULSE 100; RESP 18; TEMP 97.9; O2SAT 94
[2017-04-27] MEDS: ATORVASTATIN 20 MG TAB PO SCH (08:09)
[2017-04-27] MEDS: SODIUM CHLORIDE 0.9% FLUSH 10 ML FLUSH IV FLUSH SCH ×2 (08:11→19:57)
[2017-04-27 11:18] VITALS: BP 98/45; PULSE 100; RESP 18; TEMP 97.1; O2SAT 94
--- NOTE | 2017-04-27 11:35 | HHI.PR ---
Subjective Remarks Patient seen and examined this morning. Temperature 97.1, pulse 100, respiratory rate 18, blood pressure 90/45, pulse ox 94 on room air. She is lying in bed resting comfortably. She reports desire to go to a [facility] facility in the [facility]. She worsen her pain is tolerable with the medications. Looking forward to going to usp facility get stronger once placement is obtained. Objective Vitals Vital Signs Date Time Temp Pulse Resp B/P (MAP) Pulse Ox O2 Delivery O2 Flow Rate FiO2 04/27/17 11:18 97.1 100 18 98/45 (62) 94 04/27/17 07:59 97.9 100 18 105/50 (68) 94 04/27/17 04:00 97.4 100 16 121/63 (82) 94 04/27/17 00:00 96.8 97 17 112/60 (77) 93 04/26/17 20:00 97.8 101 18 99/51 (67) 94 04/26/17 16:00 98.0 101 17 142/80 (100) 94 04/26/17 12:00 97.4 104 18 128/70 (89) 93 I/O 04/26/17 04/26/17 04/26/17 04/27/17 04/27/17 04/27/17 07:00 15:00 23:00 07:00 15:00 23:00 Intake Total 600 ml 650 ml 480 ml 360 ml Output Total 1000 ml 4 ml Balance -400 ml 646 ml 480 ml 360 ml Intake Oral 600 ml 650 ml 480 ml 360 ml Output Urine Total 1000 ml 4 ml # Voids 2 1 # Bowel Movements 0 Result Diagram: 04/26/17 0440 04/26/17 0440 Imaging Last Impressions Hip X-Ray 04/25/17 0000 Signed Impressions: Service Date/Time: April 14:28 - CONCLUSION: Fluoroscopic images during placement of nail/clari in the right femur. Neil Maddox MD Hip and Pelvis X-Ray 04/24/17 4624 Signed Impressions: Service Date/Time: Monday, April 24, 2017 17:08 - CONCLUSION: A comminuted intertrochanteric fracture. Wagner Schmitt MD Chest X-Ray 04/24/17 1503 Signed Impressions: Service Date/Time: Monday, April 24, 2017 15:15 - CONCLUSION: No acute disease. Neil Maddox MD Procedures 04/25/17: Status post right intramedullary nail for peritrochanteric femur fracture Medications and IVs Current Medications Medications (Trade) Dose Ordered Sig/Margarette Route Start Time Stop Time Status Last Admin (Tylenol) 650 mg Q4H PRN PO 04/24/17 19:30 (Zofran Inj) 4 mg Q6H PRN IVP 04/24/17 19:30 04/25/17 16:27 (Narcan Inj) 0.4 mg UNSCH PRN IV PUSH 04/24/17 19:30 (Milk Of Magnesia Liq) 30 ml Q12H PRN PO 04/24/17 19:30 04/26/17 08:28 (Senokot) 17.2 mg Q12H PRN PO 04/24/17 19:30 (Dulcolax Supp) 10 mg DAILY PRN RECTAL 04/24/17 19:30 (Lactulose Liq) 30 ml DAILY PRN PO 04/24/17 19:30 (Morphine Inj) 2 mg Q3H PRN IV 04/24/17 19:30 04/25/17 09:16 (Morphine Inj) 4 mg Q3H PRN IV PUSH 04/24/17 19:30 04/24/17 20:18 (Lipitor) 20 mg DAILY PO 04/25/17 09:00 04/27/17 08:09 Lactated Ringer's 1,000 ml @ 30 mls/hr Q24H PRN IV 04/24/17 21:45 04/27/17 21:44 04/25/17 04:56 Sodium Chloride 500 ml @ 30 mls/hr [id number] PRN IV 04/24/17 21:45 04/27/17 21:44 (Betadine 5% Antisepsis Kit) 1 applic LOCUM TENENS PRN EACH NARE 04/24/17 21:45 04/27/17 21:44 (Chlorhexidine 2% Cloth) 3 pack LOCUM TENENS PRN TOPICAL 04/24/17 21:45 04/27/17 21:44 (NS Flush) 2 ml UNSCH PRN IV FLUSH 04/25/17 15:00 (NS Flush) 2 ml BID IV FLUSH 04/25/17 21:00 (Lovenox Inj) 40 mg Q24H SQ 04/26/17 03:00 04/27/17 03:27 (Ultram) 50 mg Q4H PRN PO 04/26/17 15:00 04/27/17 05:41 A/P Problem List: (1) Fracture of right femur ICD Code: S72.91XA - Unspecified fracture of right femur, initial encounter for closed fracture Status: Acute Assessment and Plan 81-year-old female admitted secondary to fracture of the right femur. Patient is awake alert and oriented. Pain controlled and no nausea or vomiting. Hemoglobin dropped from 12.8 to 10.7, no signs of active bleeding. Right femur fracture Status post Status post right intramedullary nail for peritrochanteric femur fracture Continue as needed pain treatments Orthopedic surgeon following PT recommending usp facility Plan for discharge to usp facility, looking at facilities in [place] Hyperlipidemia Continue home statin DVT prophylaxis Anticoagulation on hold preop Discharge Planning Anticipate discharge to usp facility once placement is obtained Problem Qualifiers (1) Fracture of right femur: Qualified Codes: S72.141A - Displaced intertrochanteric fracture of right femur , initial encounter for closed fracture Rudy Chan MD, R3 Apr 27, 2017 11:35
[2017-04-27] MEDS: ACETAMINOPHEN 325 MG TAB PO PRN (14:52)
[2017-04-27 16:00] VITALS: BP 119/54; PULSE 96; RESP 18; TEMP 97.7; O2SAT 96
[2017-04-27 20:00] VITALS: BP 144/52; PULSE 90; RESP 16; TEMP 96.9; O2SAT 97
[2017-04-28] VITALS: BP 121/64; PULSE 80; RESP 17; TEMP 97; O2SAT 98
[2017-04-28] MEDS: ENOXAPARIN SODIUM 40 MG/0.4 ML SYRINGE SQ SCH (02:11)
[2017-04-28] MEDS: ACETAMINOPHEN 325 MG TAB PO PRN ×2 (02:11→12:09)
[2017-04-28 04:00] VITALS: BP 114/60; PULSE 87; RESP 16; TEMP 98.5; O2SAT 96
[2017-04-28 08:00] VITALS: BP 116/51; PULSE 89; RESP 18; TEMP 97.1; O2SAT 98
[2017-04-28] MEDS: SODIUM CHLORIDE 0.9% FLUSH 10 ML FLUSH IV FLUSH SCH (08:11)
[2017-04-28] MEDS: ATORVASTATIN 20 MG TAB PO SCH (08:11)
--- NOTE | 2017-04-28 11:10 | PD.ORT.PN ---
Subjective Post Op Day #: 3 Subjective Remarks Patient is OOB in chair with mild pain to the right hip. Objective Vitals Vital Signs Date Time Temp Pulse Resp B/P (MAP) Pulse Ox O2 Delivery O2 Flow Rate FiO2 04/28/17 08:00 97.1 89 18 116/51 (72) 98 04/28/17 04:00 98.5 87 16 114/60 (78) 96 04/28/17 00:00 97.0 80 17 121/64 (83) 98 04/27/17 20:00 96.9 90 16 144/52 (82) 97 04/27/17 16:06 16 04/27/17 16:00 97.7 96 18 119/54 (75) 96 04/27/17 11:18 97.1 100 18 98/45 (62) 94 I/O 04/27/17 04/27/17 04/27/17 04/28/17 04/28/17 04/28/17 07:00 15:00 23:00 07:00 15:00 23:00 Intake Total 360 ml 720 ml 500 ml 480 ml Balance 360 ml 720 ml 500 ml 480 ml Intake Oral 360 ml 720 ml 500 ml 480 ml # Voids 1 1 2 2 # Bowel Movements 0 Result Diagram: 04/26/1743904/26/17 0440 Objective Remarks Awake, alert, no acute distress. Right lower extremity: Dressings C/D/I. No significant drainage. Negative Homans. Neurovascularly intact distally. Brisk cap refill. + SILT. Assessment & Plan Ortho Post Op Day #: 3 Problem List: Assessment and Plan Patient is an 81-year-old female, POD#3 s/p right intramedullary nail for peritrochanteric femur fracture 1. Partial weightbearing 50% right lower extremity. 2. PT for mobilization 3. Lovenox for DVT prophylaxis. Plan for switch to xarelto upon discharge. 4. Dressing changes as needed. 5. Orthopedically stable for discharge to SNF today if medically stable. 6. F/U with Dr. Crane in 1-2 weeks. Albert Louis Apr 28, 2017 11:10
[2017-04-28 11:57] VITALS: BP 109/54; PULSE 85; RESP 18; TEMP 96.1; O2SAT 94
--- NOTE | 2017-04-28 12:05 | HHI.PR ---
Subjective Remarks 81-year-old female with a past medical history significant for osteoarthritis and hyperlipidemia presents to the emergency department for evaluation of right- sided hip pain. The patient reports she was getting out of a car when her leg gave out and she fell directly onto her right hip on the concrete. She states her pain is currently 10/10. Hip x-ray significant for right intertrochanteric fracture. Vital signs: Temperature 97.6, pulse 66, respirations 18, BP 145/86, pulse ox 100% on room air 2-4 has been cleared by orthopedic surgery. Patient's family complaining of right knee swelling. We'll get x-ray of the right knee now If stable can still go to the [facility] facility today If very abnormal may need to recall orthopedics to evaluate Objective Vitals Vital Signs Date Time Temp Pulse Resp B/P (MAP) Pulse Ox O2 Delivery O2 Flow Rate FiO2 04/28/17 08:00 97.1 89 18 116/51 (72) 98 04/28/17 04:00 98.5 87 16 114/60 (78) 96 04/28/17 00:00 97.0 80 17 121/64 (83) 98 04/27/17 20:00 96.9 90 16 144/52 (82) 97 04/27/17 16:06 16 04/27/17 16:00 97.7 96 18 119/54 (75) 96 I/O 04/27/17 04/27/17 04/27/17 04/28/17 04/28/17 04/28/17 07:00 15:00 23:00 07:00 15:00 23:00 Intake Total 360 ml 720 ml 500 ml 480 ml Balance 360 ml 720 ml 500 ml 480 ml Intake Oral 360 ml 720 ml 500 ml 480 ml # Voids 1 1 2 2 # Bowel Movements 0 Result Diagram: 04/26/17 0440 04/26/17 0440 Other Results Laboratory Tests Test 04/26/17 04:40 White Blood Count 13.2 TH/MM3 Red Blood Count 3.18 MIL/MM3 Hemoglobin 10.7 GM/DL Hematocrit 31.6 % Mean Corpuscular Volume 99.4 FL Mean Corpuscular Hemoglobin 33.7 PG Mean Corpuscular Hemoglobin Concent 33.9 % Red Cell Distribution Width 13.5 % Platelet Count 141 TH/MM3 Mean Platelet Volume 8.8 FL Neutrophils (%) (Auto) 85.8 % Lymphocytes (%) (Auto) 8.4 % Monocytes (%) (Auto) 5.7 % Eosinophils (%) (Auto) 0.0 % Basophils (%) (Auto) 0.1 % Neutrophils # (Auto) 11.3 TH/MM3 Lymphocytes # (Auto) 1.1 TH/MM3 Monocytes # (Auto) 0.8 TH/MM3 Eosinophils # (Auto) 0.0 TH/MM3 Basophils # (Auto) 0.0 TH/MM3 CBC Comment DIFF FINAL Differential Comment Blood Urea Nitrogen 9 MG/DL Creatinine 0.77 MG/DL Random Glucose 140 MG/DL Total Protein 6.6 GM/DL Albumin 2.8 GM/DL Calcium Level 7.9 MG/DL Alkaline Phosphatase 108 U/L Aspartate Amino Transf (AST/SGOT) 33 U/L Alanine Aminotransferase (ALT/SGPT) 18 U/L Total Bilirubin 0.4 MG/DL Sodium Level 140 MEQ/L Potassium Level 3.7 MEQ/L Chloride Level 107 MEQ/L Carbon Dioxide Level 22.3 MEQ/L Anion Gap 11 MEQ/L Estimat Glomerular Filtration Rate 72 ML/MIN Imaging Last Impressions Hip X-Ray 04/25/17 0000 Signed Impressions: Service Date/Time: April 14:28 - CONCLUSION: Fluoroscopic images during placement of nail/clari in the right femur. Neil Maddox MD Hip and Pelvis X-Ray 04/24/17 1645 Signed Impressions: Service Date/Time: Monday, April 24, 2017 17:08 - CONCLUSION: A comminuted intertrochanteric fracture. Wagner Schmitt MD Chest X-Ray 04/24/17 1509 Signed Impressions: Service Date/Time: Monday, April 24, 2017 15:15 - CONCLUSION: No acute disease. Neil Maddox MD Objective Remarks GENERAL: Awake alert oriented 3 talkative and cooperative SKIN: Warm and dry. HEAD: Atraumatic. Normocephalic. EYES: Pupils equal and round. No scleral icterus. No injection or drainage. Extraocular muscles intact ENT: No nasal bleeding or discharge. Mucous membranes pink and moist. Tongue is midline NECK: Trachea midline. No JVD. Supple CARDIOVASCULAR: Regular rate and rhythm. S1-S2 no S3 or S4 no heave or thrill or rub or gallop RESPIRATORY: No accessory muscle use. Clear to auscultation. Breath sounds equal bilaterally. GASTROINTESTINAL: Abdomen soft, non-tender, nondistended. Hepatic and splenic margins not palpable. MUSCULOSKELETAL: Extremities without clubbing, cyanosis, or edema. No obvious deformities. Tenderness right knee and hip NEUROLOGICAL: Awake and alert. No obvious cranial nerve deficits. Motor grossly within normal limits. Five out of 5 muscle strength in the arms and legs. Normal speech. PSYCHIATRIC: Appropriate mood and affect; insight and judgment normal. Procedures 04/25/17: Status post right intramedullary nail for peritrochanteric femur fracture cc: Paz Crane MD Operative Report Preoperative Diagnosis: (1) Fracture of right femur Postoperative Diagnosis: Right unstable peritrochanteric femur fracture Procedure: Intramedullary nail right femur Anesthesia: Gen. Surgeon: Paz Crane Service Cleaner(s): None Operation and Findings: EBL: 150 cc Complications: None Specimens: None Indications for procedure: Patient is an 81-year-old female who presented after a trip and fall with acute onset right hip pain and found to have a right peritrochanteric femur fracture. Options of management were discussed with the patient. Surgical intervention was recommended in the form of intramedullary nail of her right femur. After discussion of risks, benefits and alternatives, patient consented the procedure. Description of procedure: Patient was brought back to the operating room and general anesthesia then ensued. Patient was then positioned onto an operating room fracture table with all bony prominences well-padded. Patient was prepped and draped in standard sterile fashion. Preoperative antibiotics were given within 1 hour of incision. A timeout was performed to identify the correct patient, side, site and procedure to be performed. The fracture was then reduced with the use of the fracture table through traction and rotation. An approximate 1-1/2-2 inch incision was made just proximal to and posterior to the greater trochanter. A guidewire was then placed into the tip of the greater trochanter and advanced to the lesser trochanteric region on both AP and lateral films. An opening reamer was then used to provide injury into the femoral canal and advanced to the lesser trochanter region. Given the concern that this was a reverse obliquity intertrochanteric fracture, an intermediate length nail was going to be used and therefore a ball-tipped guidewire was placed into the femoral canal. A 12 mm reamer was then used and passed beyond the level of the femoral isthmus. This was then removed and the Synthes TFN nail was then placed into the femur and advanced to appropriate position in both the AP and lateral films. The sleeves for the locking blade were then inserted through the jig and a lateral based incision was made to allow the sleeves to be placed down to the lateral aspect of the proximal femur. When this was in appropriate position on both AP and lateral, a guidewire for the blade was then inserted from lateral to medial direction into the femoral neck and into the center center position in the femoral head on AP and lateral radiographs. This was subsequently measured, drilled and then advanced and placed. This was found to be in appropriate position in a center center position in the femoral head on both AP and lateral radiographs. The locking screw was then tightened down onto the blade and then loosened one half turn to allow for controlled collapse. The guidewire was then removed. Traction was removed from the femur and the fracture was found to be in good position on both AP and lateral radiographs. The drill sleeves were then placed for the distal locking screw and lateral incision again made in the sleeves advanced down to the lateral cortex. This was then drilled, measured and a locking screw placed. The insertion handle and jig was then removed. Final radiographs demonstrated fracture was well aligned on both AP and lateral radiographs and hardware and acceptable position. The incisions were thoroughly irrigated and closed with interrupted Vicryl sutures and kelly on the skin. Sterile dressings were then placed. Patient was awoken from general anesthesia without complication. Disposition: Patient will be partial weightbearing 50% to the right lower extremity. Plan to mobilize her starting on postop day 1. Lovenox for DVT prophylaxis while in house and plan for xarelto upon discharge. Paz Crane MD Apr 25, 2017 14:58 <Electronically signed by Paz Crane MD> 04/25/17 0658 Medications and IVs Current Medications Sodium Chloride 1,000 ml @ 100 mls/hr Q10H IV Last administered on 04/24/17at 16:20; Start 04/24/17 at 15:15; Stop 04/24/17 at 20:12; Status DC Morphine Sulfate (Morphine Inj) 2 mg ONCE ONCE IV PUSH Last administered on at 17:39; Start 04/24/17 at 17:30; Stop 04/24/17 at 17:31; Status DC Ondansetron HCl (Zofran Inj) 4 mg ONCE ONCE IV PUSH Last administered on at 17:40; Start 04/24/17 at 17:30; Stop 04/24/17 at 17:31; Status DC Sodium Chloride (NS Flush) 2 ml UNSCH PRN IV FLUSH FLUSH AFTER USING IV ACCESS ; Start 04/24/17 at 19:30; Stop 04/26/17 at 10:13; Status DC Sodium Chloride (NS Flush) 2 ml BID IV FLUSH Last administered on 04/25/17 20: 21; Start 04/24/17 at 21:00; Stop 04/26/17 at 10:13; Status DC Acetaminophen (Tylenol) 650 mg Q4H PRN PO TEMP > 100.4 Last administered on 04/28 02:11; Start 04/24/17 at 19:30 Ondansetron HCl (Zofran Inj) 4 mg Q6H PRN IVP NAUSEA OR VOMITING Last administered on 04/25/17 16:27; Start 04/24/17 at 19:30 Naloxone HCl (Narcan Inj) 0.4 mg UNSCH PRN IV PUSH SEE LABEL COMMENTS; Start at 19:30 Magnesium Hydroxide (Milk Of Magnesia Liq) 30 ml Q12H PRN PO Mild constipation Last administered on 04/26/17 08:28; Start 04/24/17 at 19:30 Sennosides (Senokot) 17.2 mg Q12H PRN PO Moderate constipation Last administered on 04/27/17 19:56; Start 04/24/17 at 19:30 Bisacodyl (Dulcolax Supp) 10 mg DAILY PRN RECTAL SEVERE CONSITIPATION; Start at 19:30 Lactulose (Lactulose Liq) 30 ml DAILY PRN PO SEVERE CONSITIPATION; Start at 19:30 Morphine Sulfate (Morphine Inj) 2 mg Q3H PRN IV pain 1-5 Last administered on at 09:16; Start 04/24/17 at 19:30 Morphine Sulfate (Morphine Inj) 4 mg Q3H PRN IV PUSH pain 6-10 Last administered on 04/24/17at 20:18; Start 04/24/17 at 19:30 Atorvastatin Calcium (Lipitor) 20 mg DAILY PO Last administered on 04/28/17at 08: 11; Start 04/25/17 at 09:00 Lactated Ringer's 1,000 ml @ 30 mls/hr Q24H PRN IV SEE LABEL COMMENTS Last administered on 04/25/17at 04:56; Start 04/24/17 at 21:45; Stop 04/27/17 at 21:44; Status DC Sodium Chloride 500 ml @ 30 mls/hr [id number] PRN IV SEE LABEL COMMENTS; Start at 21:45; Stop 04/27/17 at 21:44; Status DC Povidone Iodine (Betadine 5% Antisepsis Kit) 1 applic LOG PROCESSOR OPERATOR PRN EACH NARE SEE LABEL COMMENTS; Start 04/24/17 at 21:45; Stop 04/27/17 at 21:44; Status DC Chlorhexidine Gluconate (Chlorhexidine 2% Cloth) 3 pack LOG PROCESSOR OPERATOR PRN TOPICAL SEE LABEL COMMENTS; Start 04/24/17 at 21:45; Stop 04/27/17 at 21:44; Status DC Hydromorphone HCl (Dilaudid Pf Inj) 0.5 mg ONCE ONCE IV PUSH ; Start 04/24/17 at 22:15; Stop 04/24/17 at 22:16; Status DC Hydromorphone HCl (Dilaudid Pf Inj) 0.5 mg ONCE ONCE IV PUSH Last administered on 04/24/17at 22:50; Start 04/24/17 at 22:30; Stop 04/24/17 at 22:31 ; Status DC Gentamicin Sulfate (Gentamicin Inj) 240 mg STK-MED ONCE .ROUTE Last administered on 04/25/17at 13:23; Start 04/25/17 at 11:39; Stop 04/25/17 at 11:40; Status DC Bupivacaine HCl/ Epinephrine Bitart (Sensorcaine-Epinephrine Pf 0.25% Inj) 30 ml STK-MED ONCE .ROUTE ; Start 04/25/17 at 11:42; Stop 04/25/17 at 11:43; Status DC Bupivacaine HCl/ Epinephrine Bitart (Sensorcaine-Epinephrine 0.25% Inj) 50 ml STK-MED ONCE .ROUTE ; Start 04/25/17 at 11:43; Stop 04/25/17 at 11:44; Status DC Midazolam HCl (Versed Inj) 2 mg STK-MED ONCE .ROUTE ; Start 04/25/17 at 12:13; Stop 04/25/17 at 12:14; Status DC Fentanyl Citrate (fentaNYL INJ) 200 mcg STK-MED ONCE .ROUTE ; Start 04/25/17 at 12:13; Stop 04/25/17 at 12:14; Status DC Famotidine (Pepcid Inj) 20 mg STK-MED ONCE .ROUTE ; Start 04/25/17 at 12:13; Stop 04/25/17 at 12:14; Status DC Vancomycin HCl (Vancomycin Inj) 1,000 mg STK-MED ONCE .ROUTE Last administered on 04/25/17at 13:16; Start 04/25/17 at 13:11; Stop 04/25/17 at 13:12; Status DC Cefazolin Sodium (Ancef Inj) 2,000 mg ONCE ONCE IV Last administered on at 13:16; Start 04/25/17 at 13:34; Stop 04/25/17 at 13:35; Status DC Sodium Chloride (NS Flush) 2 ml UNSCH PRN IV FLUSH FLUSH AFTER USING IV ACCESS ; Start 04/25/17 at 15:00 Sodium Chloride (NS Flush) 2 ml BID IV FLUSH ; Start 04/25/17 at 21:00 Cefazolin Sodium 1000 mg/Sodium Chloride 100 ml @ 200 mls/hr Q6H IV Last administered on 04/26/17at 08:28; Start 04/25/17 at 20:00; Stop 04/26/17 at 08:29; Status DC Miscellaneous Information (Post-op Orders (for Pharmacy)) STAT ONCE XX ; Start 04/25/17 at 15:00; Stop 04/25/17 at 15:20; Status DC Enoxaparin Sodium (Lovenox Inj) 40 mg Q24H SQ Last administered on 04/28/17at 02: 11; Start 04/26/17 at 03:00 Morphine Sulfate (*morphine INJ PERIprocedure ONLY) 10 mg STK-MED ONCE .ROUTE Last administered on 04/25/17at 15:07; Start 04/25/17 at 15:07; Stop 04/25/17 at 15: 08; Status DC Ondansetron HCl (*ZOFRAN INJ PERIprocedural ONLY) 4 mg STK-MED ONCE .ROUTE Last administered on 04/25/17at 15:07; Start 04/25/17 at 15:07; Stop 04/25/17 at 15: 08; Status DC Miscellaneous Information ALL NURSING DEPARTME... UNSCH PRN .XX SEE LABEL COMMENTS; Start 04/25/17 at 15:45; Stop 04/26/17 at 15:44; Status DC Tramadol HCl (Ultram) 50 mg Q4H PRN PO SEE LABEL COMMENTS Last administered on 04/27/17at 05:41; Start 04/26/17 at 15:00 A/P Problem List: (1) Fracture of right femur ICD Code: S72.91XA - Unspecified fracture of right femur, initial encounter for closed fracture Status: Acute Assessment and Plan Assessment and Plan 81-year-old female admitted secondary to fracture of the right femur. Patient is awake alert and oriented. Pain controlled and no nausea or vomiting. Hemoglobin dropped from 12.8 to 10.7, no signs of active bleeding. Right femur fracture Status post Status post right intramedullary nail for peritrochanteric femur fracture Continue as needed pain treatments Orthopedic surgeon following PT recommending [facility] facility Plan for discharge to [facility] facility, looking at facilities in [place] Right knee tenderness swelling. We'll get x-rays if stable can be discharged later today Hyperlipidemia Continue home statin DVT prophylaxis Anticoagulation on hold preop Discharge Planning Anticipate discharge to [facility] facility once placement is obtained Discharge Planning If x-ray of right hip is stable can be discharged to SNF in [place] Problem Qualifiers (1) Fracture of right femur: Qualified Codes: S72.141A - Displaced intertrochanteric fracture of right femur , initial encounter for closed fracture Bernardino Us DO Apr 28, 2017 12:05
--- NOTE | 2017-04-28 12:07 | HHI.DS ---
Discharge Summary Admission Date Apr 24, 2017 at 19:09 Discharge Date: Apr 28, 2017 Admitting Diagnosis fracture right femur (1) Fracture of right femur ICD Code: S72.91XA - Unspecified fracture of right femur, initial encounter for closed fracture Diagnosis: Principal Status: Acute Procedures 04/25/17: Status post right intramedullary nail for peritrochanteric femur fracture cc: Paz Crane MD Operative Report Preoperative Diagnosis: (1) Fracture of right femur Postoperative Diagnosis: Right unstable peritrochanteric femur fracture Procedure: Intramedullary nail right femur Anesthesia: Gen. Surgeon: Paz Crane Windows Security Engineer(s): None Operation and Findings: EBL: 150 cc Complications: None Specimens: None Indications for procedure: Patient is an 81-year-old female who presented after a trip and fall with acute onset right hip pain and found to have a right peritrochanteric femur fracture. Options of management were discussed with the patient. Surgical intervention was recommended in the form of intramedullary nail of her right femur. After discussion of risks, benefits and alternatives, patient consented the procedure. Description of procedure: Patient was brought back to the operating room and general anesthesia then ensued. Patient was then positioned onto an operating room fracture table with all bony prominences well-padded. Patient was prepped and draped in standard sterile fashion. Preoperative antibiotics were given within 1 hour of incision. A timeout was performed to identify the correct patient, side, site and procedure to be performed. The fracture was then reduced with the use of the fracture table through traction and rotation. An approximate 1-1/2-2 inch incision was made just proximal to and posterior to the greater trochanter. A guidewire was then placed into the tip of the greater trochanter and advanced to the lesser trochanteric region on both AP and lateral films. An opening reamer was then used to provide injury into the femoral canal and advanced to the lesser trochanter region. Given the concern that this was a reverse obliquity intertrochanteric fracture, an intermediate length nail was going to be used and therefore a ball-tipped guidewire was placed into the femoral canal. A 12 mm reamer was then used and passed beyond the level of the femoral isthmus. This was then removed and the Synthes TFN nail was then placed into the femur and advanced to appropriate position in both the AP and lateral films. The sleeves for the locking blade were then inserted through the jig and a lateral based incision was made to allow the sleeves to be placed down to the lateral aspect of the proximal femur. When this was in appropriate position on both AP and lateral, a guidewire for the blade was then inserted from lateral to medial direction into the femoral neck and into the center center position in the femoral head on AP and lateral radiographs. This was subsequently measured, drilled and then advanced and placed. This was found to be in appropriate position in a center center position in the femoral head on both AP and lateral radiographs. The locking screw was then tightened down onto the blade and then loosened one half turn to allow for controlled collapse. The guidewire was then removed. Traction was removed from the femur and the fracture was found to be in good position on both AP and lateral radiographs. The drill sleeves were then placed for the distal locking screw and lateral incision again made in the sleeves advanced down to the lateral cortex. This was then drilled, measured and a locking screw placed. The insertion handle and jig was then removed. Final radiographs demonstrated fracture was well aligned on both AP and lateral radiographs and hardware and acceptable position. The incisions were thoroughly irrigated and closed with interrupted Vicryl sutures and kelly on the skin. Sterile dressings were then placed. Patient was awoken from general anesthesia without complication. Disposition: Patient will be partial weightbearing 50% to the right lower extremity. Plan to mobilize her starting on postop day 1. Lovenox for DVT prophylaxis while in house and plan for xarelto upon discharge. Paz Crane MD Apr 25, 2017 14:58 <Electronically signed by Paz Crane MD> 04/25/17 9736 Brief History - From Admission 81-year-old female with a past medical history significant for osteoarthritis and hyperlipidemia presents to the emergency department for evaluation of right- sided hip pain. The patient reports she was getting out of a car when her leg gave out and she fell directly onto her right hip on the concrete. She states her pain is currently 10/10. Hip x-ray significant for right intertrochanteric fracture. Vital signs: Temperature 97.6, pulse 66, respirations 18, BP 145/86, pulse ox 100% on room air CBC/BMP: 04/26/17 0440 04/26/17 0440 Significant Findings Laboratory Tests Test 04/26/17 04:40 White Blood Count 13.2 TH/MM3 (4.0-11.0) Red Blood Count 3.18 MIL/MM3 (4.00-5.30) Hemoglobin 10.7 GM/DL (11.6-15.3) Hematocrit 31.6 % (35.0-46.0) Platelet Count 141 TH/MM3 (150-450) Neutrophils (%) (Auto) 85.8 % (16.0-70.0) Lymphocytes (%) (Auto) 8.4 % (9.0-44.0) Neutrophils # (Auto) 11.3 TH/MM3 (1.8-7.7) Random Glucose 140 MG/DL (74-106) Albumin 2.8 GM/DL (3.4-5.0) Calcium Level 7.9 MG/DL (8.5-10.1) Estimat Glomerular Filtration Rate 72 ML/MIN (>89) Imaging Last Impressions Hip X-Ray 04/25/17 0000 Signed Impressions: Service Date/Time: April 14:28 - CONCLUSION: Fluoroscopic images during placement of nail/clari in the right femur. Neil Maddox MD Hip and Pelvis X-Ray 04/24/17 1645 Signed Impressions: Service Date/Time: Monday, April 24, 2017 17:08 - CONCLUSION: A comminuted intertrochanteric fracture. Wagner Schmitt MD Chest X-Ray 04/24/17 1509 Signed Impressions: Service Date/Time: Monday, April 24, 2017 15:15 - CONCLUSION: No acute disease. Neil Maddox MD PE at Discharge GENERAL: Awake alert oriented 3 talkative and cooperative SKIN: Warm and dry. HEAD: Atraumatic. Normocephalic. EYES: Pupils equal and round. No scleral icterus. No injection or drainage. Extraocular muscles intact ENT: No nasal bleeding or discharge. Mucous membranes pink and moist. Tongue is midline NECK: Trachea midline. No JVD. Supple CARDIOVASCULAR: Regular rate and rhythm. S1-S2 no S3 or S4 no heave or thrill or rub or gallop RESPIRATORY: No accessory muscle use. Clear to auscultation. Breath sounds equal bilaterally. GASTROINTESTINAL: Abdomen soft, non-tender, nondistended. Hepatic and splenic margins not palpable. MUSCULOSKELETAL: Extremities without clubbing, cyanosis, or edema. No obvious deformities. Tenderness right knee and hip NEUROLOGICAL: Awake and alert. No obvious cranial nerve deficits. Motor grossly within normal limits. Five out of 5 muscle strength in the arms and legs. Normal speech. PSYCHIATRIC: Appropriate mood and affect; insight and judgment normal. Hospital Course 81-year-old female with a past medical history significant for osteoarthritis and hyperlipidemia presents to the emergency department for evaluation of right- sided hip pain. The patient reports she was getting out of a car when her leg gave out and she fell directly onto her right hip on the concrete. She states her pain is currently 10/10. Hip x-ray significant for right intertrochanteric fracture. Vital signs: Temperature 97.6, pulse 66, respirations 18, BP 145/86, pulse ox 100% on room air 2-4 has been cleared by orthopedic surgery. Patient's family complaining of right knee swelling. We'll get x-ray of the right knee now If stable [facility] If very abnormal may need to recall orthopedics to evaluate Assessment and Plan 81-year-old female admitted secondary to fracture of the right femur. Patient is awake alert and oriented. Pain controlled and no nausea or vomiting. Hemoglobin dropped from 12.8 to 10.7, no signs of active bleeding. Right femur fracture Status post Status post right intramedullary nail for peritrochanteric femur fracture Continue as needed pain treatments Orthopedic surgeon following PT [facility] Plan for discharge to [facility], looking at facilities in [place] RIGHT KNEE TENDERNESS - WILL GET XRAYS Hyperlipidemia Continue home statin DVT prophylaxis Anticoagulation on hold preop Discharge Planning Anticipate discharge to [facility] facility once placement is obtained Pt Condition on Discharge: Good Discharge Disposition: Discharge to SNF Discharge Time: > 30 minutes Discharge Instructions DIET: Follow Instructions for: Heart Healthy Diet Speech Therapy-Diet Recommends: Regular Activities you can perform: Weight Bearing as Fely Follow up Referrals: Orthopedics - 2 Weeks @ [facility] with Paz Crane MD PCP Follow-up - 2 Weeks New Medications: Hydrocodone-Acetaminophen ([place]) 5 Mg-325 Mg Tab 1 TAB PO Q4H PRN for PAIN, #60 TAB 0 Refills Rivaroxaban (Xarelto) 10 Mg Tab 10 MG PO DAILY for Blood Clot Prevention for 14 Days, #14 TAB 0 Refills Continued Medications: Atorvastatin (Atorvastatin) 20 Mg Tab 20 MG PO DAILY for Cholesterol Management, #30 TAB 0 Refills Diphenhydramine HCl (Benadryl Allergy) 25 Mg Cap 2 TAB PO DAILY Bernardino Us DO Apr 28, 2017 12:07
--- NOTE | 2017-04-28 12:37 | RADRPT ---
EXAM DATE/TIME: 04/28/2017 12:25 [place] COMPARISON: No previous studies available for comparison. INDICATIONS : Right knee pain; fall 4 days ago. MEDICAL HISTORY : None. SURGICAL HISTORY : ORIF right hip. ENCOUNTER: Initial ACUITY: 4 - 6 days PAIN SCORE: 6/10 LOCATION: Right knee. FINDINGS: Four view examination of the right knee demonstrates no evidence of fracture or dislocation. Bony mi neralization is normal. Mild to moderate osteoarthritis. No effusion. CONCLUSION: 1. Osteoarthritis without fracture. Neil Maddox MD on April 28, 2017 at 12:34 Board Certified Radiologist. This report was verified electronically.
[2017-04-28 13:36] VITALS: RESP 16
[2017-04-28] MEDS: traMADol HCL 50 MG TAB PO PRN (14:59)
== END 2017-04-28 16:00 | DRG 481 ==
LOC: NEPC 14:19 → NEDA 19:09 → N06B 20:36 → N06A 04-25 17:12
PROVIDERS: ADMIT Hospitalist; ATTEND Hospitalist
PROC: 0QS606Z Reposition Right Upper Femur with Intramedullary Internal Fixation Device, Open Approach (ICD-10-PCS; principal; 2017-04-25 12:51)
DX: S72.141A Displaced intertrochanteric fracture of right femur, initial encounter for closed fracture (principal); R71.0 Precipitous drop in hematocrit; F03.90 Unspecified dementia, unspecified severity, without behavioral disturbance, psychotic disturbance, mood disturbance, and anxiety; E78.5 Hyperlipidemia, unspecified; M85.80 Other specified disorders of bone density and structure, unspecified site; R41.0 Disorientation, unspecified; M19.90 Unspecified osteoarthritis, unspecified site; T88.59XA Other complications of anesthesia, initial encounter; M25.461 Effusion, right knee; V48.4XXA Person boarding or alighting a car injured in noncollision transport accident, initial encounter; Z85.3 Personal history of malignant neoplasm of breast; Z88.0 Allergy status to penicillin
CPT/HCPCS: 51702; 71045; 73502; 73564; 76000; 76937; 80048; 80053; 81001; 85025; 85610; 85730; 86850; 86900; 86901; 93005; 96361; 96374; 96375; C1713; J0690; J1100; J1170; J1580; J1650; J2250; J2270; J2370; J2405; J3010; J3370; J7030; J7120